=== PATIENT | female | born 1970 | race Caucasian/White ===

== ENCOUNTER 2016-06-29 21:47 | Emergency (ER) | payer OTHER ==
[~2016-06-29] VITALS: Ht 154.9 cm; Wt 108.9 kg
[~2016-06-29 21:47] MED LIST: KLOR-CON M1010 ME1 PO; MOTRIN800 MG PO
[2016-06-30] MEDS ORDERED: CHLORTHALIDONE25 M1 PO
[2016-06-30] MEDS ORDERED: LISINOPRIL2.5 M1 PO
[2016-06-30] MEDS ORDERED: PRAVASTATIN SOD40 M2 PO (00:02)
[2016-06-30] MEDS ORDERED: METFORMIN HCL500 M4 PO (00:03)
[2016-06-30 00:51] LABS: ABSOLUTE BASOPHIL COUNT 0 /CUMM (0.0-0.2); ABSOLUTE EOSINOPHIL COUNT 0.1 /CUMM (0.0-0.7); ABSOLUTE GRANULOCYTE CT 5.7 /CUMM (1.4-6.5); ABSOLUTE LYMPH COUNT 2.6 /CUMM (1.2-3.4); ABSOLUTE MONOCYTE COUNT 0.7 /CUMM (0.10-0.60); BASOPHIL % 0.4 % (0.0-2.0); EOSINOPHIL % 1.1 % (0-5); GRANULOCYTE % 62.3 % (42.2-75.2); HEMATOCRIT 40.3 % (37-47); MEAN CORPUSCULAR HGB CONC 34.2 G/DL (33.0-37.0); MEAN CORPUSCULAR VOLUME 78.9 FL (81.0-99.0); MEAN PLATELET VOLUME 10.5 FL (7.4-10.4); PLATELET COUNT 229 /CUMM (130-400); RBC DISTRIBUTION WIDTH 14.5 % (11.5-14.5); WHITE BLOOD CELL COUNT 9.2 /CUMM (4.8-10.8)
--- NOTE | 2016-06-30 01:00 | ED GENERAL ADULT ---
History of Present Illness General Chief Complaint: General Adult Stated Complaint: "EPISODE TODAY, FELT LIKE I WAS ON FIRE" PER PT Source: patient, family, old records Exam Limitations: no limitations Vital Signs & Intake/Output Vital Signs & Intake/Output Vital Signs Date Time Temp Pulse Resp B/P Pulse O2 O2 Flow FiO2 Ox Delivery Rate 06/30 0122 96.8 101 20 135/82 96 Room Air 06/30 0045 97 06/29 2358 96 Room Air 06/29 2212 98.6 102 20 139/62 98 Room Air ED Intake and Output 06/30 0000 06/29 1200 Intake Total 0 Output Total Balance 0 Intake, Oral 0 Patient 240 lb Weight Allergies Coded Allergies: NO KNOWN ALLERGIES (12/05/12) Reconcile Medications Albuterol Sulfate (Proair Hfa) 90 MCG HFA.AER.AD 2-4 PUF INH Q4-6 PRN PRN shortness of breath Benzonatate (Tessalon Perle) 100 MG CAPSULE 1 CAP PO TID PRN cough Chlorthalidone 25 MG TABLET 1 TAB PO DAILY HEART HEALTH (Reported) Ibuprofen (Motrin) 800 MG TAB 1 TAB PO Q8P PRN PAIN Lisinopril 2.5 MG TABLET 1 TAB PO DAILY HEART HEALTH (Reported) Metformin HCl (Metformin HCl ER) 500 MG TAB.ER.24H 1 TAB PO BID DIABETES ( Reported) Potassium Chloride (Klor-Con M10) 10 MEQ TAB.ER.PRT 1 TAB PO DAILY ELECTROLYTES (Reported) Pravastatin Sodium 40 MG TABLET 1 TAB PO QPM HEART HEALTH (Reported) Triage Note: PT TO ED C/O AN EPISODE WHERE SHE "FELT LIKE I WAS ON FIRE" LASTED APPROX 3-5 MINS LONG. WAS EATING DINNER. STATES BECAME "RED EVERYWHERE" "EVEN MY EYES WERE BLOODSHOT" PT AFEBRILE IN TRIAGE. DX WITH BRONCHITIS ON SUNDAY. IS CURRENTLY ON ANTIBIOTICS Triage Nurses Notes Reviewed? yes Onset: Just prior to arrival Duration: minute(s):, constant, gone now Timing: recent history Injury Environment: home Severity: severe Modifying Factors: Improves With: rest. Associated Symptoms: diaphoresis LMP (ages 10-50): unknown : No Patient currently breastfeeds: No HPI: Prior to admission while eating dinner patient felt and saw flashing from her torso to her face with bloodshot eyes diaphoresis anxiety. 1 week prior to admission she had upper respiratory congestion nonproductive cough seen at [facility] prescribed Zithromax. She denies fever chills nausea vomiting diarrhea chest pain shortness of breath headache dysuria rash bleeding. Her periods have been irregular since uterine ablation several years ago. Past History Travel History Traveled to [place] past 21 day No Medical History Any Pertinent Medical History? see below for history Cardiovascular: hypertension, hyperlipidemia Respiratory: bronchitis Surgical History Surgical History: non-contributory Psychosocial History What is your primary language Malian Tobacco Use: Never used ETOH Use: denies use Illicit Drug Use: denies illicit drug use Family History Hx Contributory? No Review of Systems Review of Systems Constitutional: Reports: see HPI, diaphoresis, malaise. EENTM: Reports: see HPI, nasal congestion. Respiratory: Reports: see HPI, cough. Cardiovascular: Reports: no symptoms. GI: Reports: no symptoms. Genitourinary: Reports: no symptoms. Musculoskeletal: Reports: no symptoms. Skin: Reports: see HPI, change in skin color. Neurological/Psychological: Reports: no symptoms. Hematologic/Endocrine: Reports: no symptoms. Immunologic/Allergic: Reports: no symptoms. All Other Systems: Reviewed and Negative Physical Exam Physical Exam General Appearance: well developed/nourished, alert, awake, anxious, mild distress, obese Head: atraumatic, normal appearance Eyes: Bilateral: normal appearance, PERRL, EOMI. Ears, Nose, Throat: normal pharynx, normal ENT inspection Neck: normal inspection, supple, full range of motion, no midline tenderness Respiratory: chest non-tender, no respiratory distress, quiet respiration, decreased breath sounds, wheezing Cardiovascular: regular rate/rhythm, normal peripheral pulses, norml femoral pulses equa Peripheral Pulses: 4+ carotid (R), 4+ carotid (L) Gastrointestinal: normal bowel sounds, soft, non-tender, no organomegaly Back: normal inspection, normal range of motion, no vertebral tenderness Extremities: normal inspection, normal capillary refill, normal range of motion, no edema Neurologic/Psych: no motor/sensory deficits, awake, alert, oriented x 3, normal gait, normal mood/affect, 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 Skin: intact, normal color, warm/dry Lymphatic: no anterior cervical mariaelena Core Measures ACS in differential dx? No CVA/TIA Diagnosis: No Severe Sepsis Present: No Septic Shock Present: No Progress Differential Diagnoses I considered the following diagnoses in my evaluation of the patient: Perimenopausal hot flash bronchitis pneumonia Plan of Care: Orders Procedure Date/time Status MAGNESIUM 06/30 12 Complete COMPREHENSIVE METABOLIC PANEL 06/30 12 Complete CBC WITHOUT DIFFERENTIAL 06/30 12 Complete Laboratory Tests 06/30/16 0023: Anion Gap 9, Estimated GFR > 60, BUN/Creatinine Ratio 24.0, Glucose 127 H, Calcium 9.6, Magnesium 1.9, Total Bilirubin 0.5, AST 25, ALT 43, Alkaline Phosphatase 90, Total Protein 7.8, Albumin 4.4, Globulin 3.4, Albumin/Globulin Ratio 1.3, CBC w Diff NO MAN DIFF REQ, RBC 5.10, MCV 78.9 L, MCH 27.0, RDW 14.5 , MPV 10.5 H, Gran % 62.3, Lymphocytes % 28.7, Monocytes % 7.5, Eosinophils % 1.1, Basophils % 0.4, Absolute Granulocytes 5.7, Absolute Lymphocytes 2.6, Absolute Monocytes 0.7 H, Absolute Eosinophils 0.1, Absolute Basophils 0, PUBS MCHC 34.2 Diagnostic Imaging: Viewed by Me: Radiology Read. Discussed w/RAD: Radiology Read. CXR Impression: no acute abnormality, no infiltrates Initial ED EKG: none Departure Departure Time of Disposition: 132 Disposition: HOME OR SELF CARE Condition: Stable Clinical Impression Primary Impression: Hypokalemia Secondary Impressions: Bronchitis, Hot flushes, perimenopausal Referrals: ESTRELLITA JOYNER,YSABEL (PCP/Family) Additional Instructions: Take 40 mEq of potassium before bed. Increase to 20 mEq of potassium 2 times a day for 5 days. Departure Forms: Customer Survey General Discharge Information Prescriptions: Current Visit Scripts Albuterol Sulfate (Proair Hfa) 2-4 PUF INH Q4-6 PRN PRN shortness of breath #1 INHAL Benzonatate (Tessalon Perle) 1 CAP PO TID PRN cough #21 CAP Critical Care Note Critical Care Note Critical Care Time: non-applicable
--- NOTE | 2016-06-30 01:09 | RADIOLOGY REPORT ---
EXAMINATION: XR CHEST CLINICAL INFORMATION: Cough. Shortness of breath. COMPARISON: CT angiogram of the chest 12/05/2012. TECHNIQUE: 2 views of the chest were obtained. FINDINGS: Lungs are well-expanded. There is no focal consolidative disease, pleural effusion, or pneumothorax. The cardiac silhouette is at the upper limits of normal size. Upper mediastinal contours are normal. No acute osseous finding. IMPRESSION: The cardiac silhouette is at the upper limits of normal size. No overt consolidative disease or effusion.
[2016-06-30 01:22] VITALS: BP 135/82
[2016-06-30] MEDS ORDERED: PROAIR HFA8.5 GM INH (01:35)
[2016-06-30] MEDS ORDERED: TESSALON PERLE100 M1 PO (01:35)
== END 2016-06-30 01:48 ==
LOC: ERH 21:47
PROVIDERS: Emergency Medicine
DX: E87.6 Hypokalemia (principal); J40 Bronchitis, not specified as acute or chronic; N95.1 Menopausal and female climacteric states
CPT/HCPCS: 1263; 1395